=== PATIENT | female | born 1995 | race Caucasian/White ===

== ENCOUNTER 2018-10-09 19:02 | Emergency (ER) | payer BC, MEDICAID ==
[~2018-10-09] VITALS: Ht 157.5 cm; Wt 55.8 kg
[~2018-10-09 19:02] MED LIST: PRENMIS19
[2018-10-09 19:14] VITALS: BP 108/59
== END 2018-10-09 22:10 | disposition home or self-care (01) ==
LOC: ER 19:02
DX: M54.2 Cervicalgia (principal); R07.89 Other chest pain; M54.9 Dorsalgia, unspecified; J45.909 Unspecified asthma, uncomplicated; V49.49XA Driver injured in collision with other motor vehicles in traffic accident, initial encounter; Y93.89 Activity, other specified; Y99.8 Other external cause status; Y92.410 Unspecified street and highway as the place of occurrence of the external cause
CPT/HCPCS: 71045; 72070; 72125

== ENCOUNTER 2024-07-02 08:35 | Observation (INO) | payer MEDICAID ==
--- NOTE | 2024-07-02 13:22 | DVHDS2 ---
Physician Discharge Progress N Final Diagnosis: cramping 36 wks Operations or Procedures: Operations or Procedures nst 36wks,sono Condition on Discharge: Good Disposition: Home Discharge Instructions: Diet: Regular Activity: No Restrictions, As Tolerated Medications: na Follow Up Care: Specialist: yolanda Discharge Statement: "Patient was advised to return to the ER or call 911 if any headaches, dizziness, shortness of breath, chest pain, abdominal pain, bleeding, fevers, or worsening of medical condition. Patient was counseled about treatment plan, medications, possible side effects, patientverbalized understanding. All questions were answered to the best of my ability. This discharge took greater then 30 minutes in planning, reviewing documentation, counseling the patient, and discussing with other team members." Visit Coding OBGYN Date of Service: Jul 02, 2024 Billing Provider: FERNANDEZ MORRISSEY DO STOCK WETTER Common Visit Codes: 78884-WYV/OBS SAME DATE (HIGH) STOCK WETTER Procedure Codes: 28781-46- NON-STRESS TEST FERNANDEZ MORRISSEY DO Jul 02, 2024 13:22
== END 2024-07-02 10:05 | disposition home or self-care (01) ==
LOC: LDRP 08:35 → UNDOADMOB 08:35 → LDRP 08:47
PROVIDERS: ADMIT Obstetrics & Gynecology; ATTEND Obstetrics & Gynecology
DX: O26.893 Other specified pregnancy related conditions, third trimester (principal); R10.9 Unspecified abdominal pain; N89.8 Other specified noninflammatory disorders of vagina; Z3A.36 36 weeks gestation of pregnancy; Z79.899 Other long term (current) drug therapy
CPT/HCPCS: 59025; 81002; 94760; G0378

== ENCOUNTER 2024-07-10 08:36 | Observation (INO) | payer MEDICAID ==
--- NOTE | 2024-07-11 15:20 | DVHDS2 ---
Physician Discharge Progress N Final Diagnosis: labor check 36wks Operations or Procedures: Operations or Procedures nst 36wks,sono Condition on Discharge: Good Disposition: Home Discharge Instructions: Diet: Regular Activity: No Restrictions, As Tolerated Medications: na Follow Up Care: Specialist: 1w Discharge Statement: "Patient was advised to return to the ER or call 911 if any headaches, dizziness, shortness of breath, chest pain, abdominal pain, bleeding, fevers, or worsening of medical condition. Patient was counseled about treatment plan, medications, possible side effects, patientverbalized understanding. All questions were answered to the best of my ability. This discharge took greater then 30 minutes in planning, reviewing documentation , counseling the patient, and discussing with other team members." Visit Coding OBGYN Date of Service: Jul 10, 2024 Billing Provider: FERNANDEZ MORRISSEY DO MUSIC MINISTRIES DIRECTOR Common Visit Codes: 73009-SDMAQYI INP/OBS CARE (HIGH) MUSIC MINISTRIES DIRECTOR Procedure Codes: 32528-16- NON-STRESS TEST FERNANDEZ MORRISSEY DO Jul 11, 2024 15:20
== END 2024-07-10 10:23 | disposition home or self-care (01) ==
LOC: LDRP 08:36
PROVIDERS: ADMIT Obstetrics & Gynecology; ATTEND Obstetrics & Gynecology
DX: O62.9 Abnormality of forces of labor, unspecified (principal); Z3A.36 36 weeks gestation of pregnancy; Z79.899 Other long term (current) drug therapy; Z98.890 Other specified postprocedural states
CPT/HCPCS: 59025; 81002; 94760; G0378

== ENCOUNTER 2024-07-15 08:34 | Observation (INO) | payer MEDICAID ==
[2024-07-15 09:34] LABS: Fern Testing Negative
--- NOTE | 2024-07-15 11:35 | DVHDS2 ---
Physician Discharge Progress N Final Diagnosis: labor check 37wks Operations or Procedures: Operations or Procedures nst 37wks,,sve Condition on Discharge: Good Disposition: Home Discharge Instructions: Diet: Regular Activity: No Restrictions, As Tolerated Medications: na Follow Up Care: Specialist: 1w Discharge Statement: "Patient was advised to return to the ER or call 911 if any headaches, dizziness, shortness of breath, chest pain, abdominal pain, bleeding, fevers, or worsening of medical condition. Patient was counseled about treatment plan, medications, possible side effects, patientverbalized understanding. All questions were answered to the best of my ability. This discharge took greater then 30 minutes in planning, reviewing documentation , counseling the patient, and discussing with other team members." Visit Coding OBGYN Date of Service: Jul 15, 2024 Billing Provider: FERNANDEZ MORRISSEY DO REPAIR ELECTRIC MOTOR ASSEMBLER Common Visit Codes: 79594-[id number] INP/OBS CARE (HIGH) REPAIR ELECTRIC MOTOR ASSEMBLER Procedure Codes: 17408-40- NON-STRESS TEST FERNANDEZ MORRISSEY DO Jul 15, 2024 11:35
== END 2024-07-15 10:02 | disposition home or self-care (01) ==
LOC: UNDOADMOB 08:34 → LDRP 08:34
PROVIDERS: ADMIT Obstetrics & Gynecology; ATTEND Obstetrics & Gynecology
DX: O62.9 Abnormality of forces of labor, unspecified (principal); Z98.890 Other specified postprocedural states; Z79.899 Other long term (current) drug therapy; Z3A.37 37 weeks gestation of pregnancy
CPT/HCPCS: 59025; 81002; 84112; 94760; G0378; Q0114

== ENCOUNTER 2024-07-23 21:40 | Observation (INO) | payer MEDICAID ==
--- NOTE | 2024-07-23 22:55 | DVHDS2 ---
Physician Discharge Progress N Final Diagnosis: Abdominal muscle spasm, resolved Operations or Procedures: Operations or Procedures S: pt is a 28 yo @ 39.4 wks IUP in triage for umbillical pain that moved to her right side of abdomen after eating for an hour but pain was better when she got to labor and delivery. Pt denies complications during this . Pt saw Dr. Brumfield in clinic today 07/23/24 and had a vaginal exam of 0.550/-3 Pt denies UCs,VB, leakage of fluid, and endorses +FM. O: VSS. Vaginal exam by MINDA Leung: /-3 EFM: FHR 150 bpm, moderate variabilty with accels, no decels. [place]: no contractions, irritability noticed A: 28 yo @ 39.4 wks Category I EFM tracing P: D/C home Return Sunday07/26/24 for NST kick counts and Preeclampsia warning signs reviewed. Labor precautions given and when to return to the hospital. Condition on Discharge: Stable Disposition: Home Discharge Instructions: Diet: Regular Activity: No Restrictions, As Tolerated Follow Up/Referral: Pt to come back to triage on Sunday07/26/24 for NST Medications: see med list Follow Up Care: Primary Care Provider: Dr. Brumfield Specialist: Dr. Brumfield Discharge Statement: "Patient was advised to return to the ER or call 911 if any headaches, dizziness, shortness of breath, chest pain, abdominal pain, bleeding, fevers, or worsening of medical condition. Patient was counseled about treatment plan, medications, possible side effects, patientverbalized understanding. All questions were answered to the best of my ability. This discharge took greater then 30 minutes in planning, reviewing documentation, counseling the patient, and discussing with other team members." Visit Coding OBGYN Date of Service: Jul 23, 2024 Billing Provider: HOMER ZAYAS CNM TRANSIT MECHANIC Common Visit Codes: 56041-HOU/OBS DISCH DAY <30MIN JEWELS LERNER STDMadelyn MDWF Jul 23, 2024 22:55
== END 2024-07-23 22:48 | disposition home or self-care (01) ==
LOC: LDRP 21:40
PROVIDERS: ADMIT Obstetrics & Gynecology; ATTEND Obstetrics & Gynecology
DX: O26.893 Other specified pregnancy related conditions, third trimester (principal); R10.33 Periumbilical pain; Z3A.39 39 weeks gestation of pregnancy
CPT/HCPCS: 81002; 94760; G0378

== ENCOUNTER 2024-07-26 18:56 | Observation (INO) | payer MEDICAID ==
--- NOTE | 2024-07-26 19:53 | DVH ---
BIOPHYSICAL PROFILE HISTORY: postdates TECHNIQUE: Multiple transabdominal real-time grayscale sonographic images through the gravid uterus of the fetus with duplex Doppler color flow and M-mode spectral analysis FINDINGS: BIOPHYSICAL PROFILE: breathing score: 2 movement score: 2 tone score: 2 Quantitative RAMBO score: 2 (RAMBO: 9.1 Cm.) Total score: 8/8 The cervix not measured Single live fetus in cephalic presentation. heart rate 145 beats per minute. Posterior Grade 3 placenta without previa or abruption Single live fetus at 40 weeks 0 days Biophysical profile score 8/8 corresponding to an PERCY of 07/26/2024 Estimated weight not calculated g IMPRESSION: 1. Biophysical profile score: 8/8
--- NOTE | 2024-07-26 20:28 | DVHDS2 ---
Physician Discharge Progress N Final Diagnosis: IUP 40 wk, not in labor Secondary Diagnosis: Encounter for NST/BPP Operations or Procedures: Operations or Procedures NST/BPP RAMBO all WNL Condition on Discharge: Stable Disposition: Home Discharge Instructions: Diet: Regular Activity: Light activity Follow Up/Referral: as scheduled ,every 3 days until delivered Medications: N/A Follow Up Care: Discharge Statement: "Patient was advised to return to the ER or call 911 if any headaches, dizziness, shortness of breath, chest pain, abdominal pain, bleeding, fevers, or worsening of medical condition. Patient was counseled about treatment plan, medications, possible side effects, patientverbalized understanding. All questions were answered to the best of my ability. This discharge took greater then 30 minutes in planning, reviewing documentation, counseling the patient, and discussing with other team members." Visit Coding OBGYN Date of Service: Jul 26, 2024 Billing Provider: LIO SO DO DOUGH SHEETER Common Visit Codes: 72317-JQW/OBS SAME DATE (HIGH) DOUGH SHEETER Procedure Codes: 76712-75- NON-STRESS TEST LIO SO DO Jul 26, 2024 20:28
== END 2024-07-26 20:41 | disposition home or self-care (01) ==
LOC: LDRP 18:56
PROVIDERS: ADMIT Obstetrics & Gynecology; ATTEND Obstetrics & Gynecology
DX: O48.0 Post-term pregnancy (principal); Z98.890 Other specified postprocedural states; Z79.899 Other long term (current) drug therapy; Z3A.40 40 weeks gestation of pregnancy
CPT/HCPCS: 76819; 81002; 94760; G0378

== ENCOUNTER 2024-07-28 07:03 | Inpatient (IN) | payer MEDICAID ==
[~2024-07-28] VITALS: Ht 157.5 cm; Wt 80.3 kg
[2024-07-29] MEDS ORDERED: BUTORPHANOL TARTRATE 2 MG/1 ML VIAL IV PRN ×2 (10:45)
[2024-07-29] MEDS ORDERED: LIDOCAINE 2%HCL (LOCAL ANESTH.) INJ 20ML MDV IJ PRN (10:45)
[2024-07-29] MEDS ORDERED: LACTATED RINGER'S 1,000 ML IV SCH (10:45)
[2024-07-29 11:38] LABS: Basophils # (auto) 0 10 ^3/uL (0-0.2); Basophils % (auto) 0.2 % (0.0-2.0); Eosinophils # (auto) 0.2 10 ^3/uL (0-0.8); Eosinophils % (auto) 2.9 % (0.0-7.0); Hematocrit 28.7 % (36.0-46.0); Hemoglobin 9.7 g/dL (12.2-16.2); Lymphocytes % (auto) 15.4 % (10.0-50.0); Mean Corpuscular Hemoglobin 32.7 pg (28.0-32.0); Mean Corpuscular Hgb Conc. 33.8 g/dL (32.0-36.0); Mean Corpuscular Volume 96.8 fL (80.0-100.0); Monocytes # (auto) 0.8 10 ^3/uL (0-1.3); Neutrophils # (auto) 4.5 10 ^3/uL (1.6-8.6); Neutrophils % (auto) 69.5 % (37.0-80.0); Platelet Count (auto) 181 10^3/uL (140-450); Red Blood Cells 2.96 10^6/uL (4.0-5.20); White Blood Cell 6.5 10^3/uL (4.4-10.8)
[2024-07-29 11:53] LABS: INR 1.21 (0.9-1.15); Partial Thromboplastin Time 50.8 SEC (24.5-34.5); Prothrombin Time 12.6 sec (9.3-11.8)
[2024-07-29 11:55] LABS: Alanine Aminotransferase 15 U/L (7-40); Anion Gap 12 (5-15); Aspartate Aminotransferase 16 U/L (13-40); BUN/Creatinine Ratio 11.9 (10.0-20.0); Bilirubin, Total 0.4 mg/dL (0.2-1.0); Chloride 106 mmol/L (98-107); Glucose 98 mg/dL (74-106); Potassium 3.7 mmol/L (3.5-5.1); Sodium 138 mmol/L (136-145)
[2024-07-29 11:57] LABS: Alkaline Phosphatase 148 U/L (46-116); Blood Urea Nitrogen 5 mg/dL (9-23); Calcium 8.2 mg/dL (8.7-10.4); Carbon Dioxide 20 mmol/L (20-31); Total Protein 5.2 g/dL (5.7-8.2)
[2024-07-29 11:57] LABS: Urine Bacteria FEW /hpf (None Seen); Urine Blood Negative /uL (Negative); Urine Clarity Clear (Clear); Urine Color Light-Yellow (Yellow); Urine Mucus FEW (None Seen); Urine Protein, UAD Negative (Negative); Urine Specific Gravity 1.014 (1.001-1.035); Urine Squamous Epithelial Cell FEW /hpf (<5); Urine Urobilinogen Normal (Negative); Urine WBC 2 /HPF (0-5); Urine pH 6.5 (5.0-9.0)
[2024-07-29 12:08] LABS: Barbiturate Scree,Urine Neg (NEGATIVE); Opiate Scree,Urine Neg (NEGATIVE); Phencyclidine Screen, Urine Neg (NEGATIVE)
[2024-07-29 12:09] LABS: Amphetamine Screen, Urine Neg (NEGATIVE); Benzodiazephine Screen, Urine Neg (NEGATIVE); Cannabinoid Screen, Urine Neg (NEGATIVE); Cocaine Screen, Urine Neg (NEGATIVE)
[2024-07-29] MEDS: miSOPROStol 50 MCG per PRE-CUT 1/2 TAB PO PRN (12:18)
--- NOTE | 2024-07-29 14:57 | DVHHP2 ---
OB CC & HPI Date Date of Admission: Jul 29, 2024 Patient Identification: : 3 Para: 2 EDC: Jul 26, 2024 EGA: 40.3 Chief Complaints: Reason for admission: induction of labor History of Present Complaints Elective induction at 40+ weeks GBS neg Normal , good PNL care w/ Dr. Brumfield Past Medical History Cardiac: No pertinent Hx Pulmonary: No pertinent Hx Central Nervous System: No pertinent Hx GI: No pertinent Hx Hemotology/Oncology: No pertinent Hx Hepatobiliary: No pertinent Hx Psychiatric: No pertinent Hx Musculoskeletal: No pertinent Hx Rheumotologic: No pertinent Hx Infectious Disease: No peritnent Hx ENT: No pertinent Hx Renal/: No pertinent Hx Endocrine: No pertinent Hx Dermatology: No pertinent Hx Past Surgical History: No pertinent Hx OB History OB History Care: Good Care Ultrasounds: Normal mid trimester US Obstetrical Complications: None Medical Complications: None Allergies: Coded Allergies: NO KNOWN ALLERGIES (Unverified , 09/12/10) Home Meds Reported Medications Mv & Min W/Fe Fumarat ( Multivitamin + D) + Dha Mis 09/12/10 Current Medications Current Medications Medications (Trade) Dose Ordered Sig/Dmitriy Route PRN Reason Start Time Stop Time Status Last Admin Lactated Ringer's 1,000 ml @ 125 mls/hr Q8H IV 07/29/24 10:45 Witch Mirella (Tucks) 1 pad PRN PRN TOP PERINEAL AREA DISCOMFORT 07/29/24 10:45 Sodium Lauryl Sulfate (Phisoderm) 240 ml PRN PRN TOP PERINEAL AREA DISCOMFORT 07/29/24 10:45 Benzocaine (Dermoplast) 1 applic PRN PRN TOP PERINEAL AREA DISCOMFORT 07/29/24 10:45 Butorphanol Tartrate (Stadol Injection) 1 mg Q4HPRN PRN IV MODERATE PAIN (4-6 PAIN SCALE) 07/29/24 10:45 Butorphanol Tartrate (Stadol Injection) 2 mg Q4HPRN PRN IV SEVERE PAIN (7-10 PAIN SCALE) 07/29/24 10:45 Misoprostol (Cytotec) 50 mcg Q4HPRN PRN PO CERVICAL RIPENING 07/29/24 10:45 07/29/24 12:18 Lidocaine HCl (Xylocaine) 20 ml ONCE PRN IJ PERINEAL AREA DISCOMFORT 07/29/24 10:45 Family & Social History Family/Social History Rubella: immune RPR/VDRL: Negative GBS Status: Negative HBsAG: Negative Review of Systems Constitutional: No symptom reported Ears, Nose, & Throat: No symptom reported Eyes: No symptom reported Pulmonary/Respiratory: No symptom reported Cardiovascular: No symptom reported Gastrointestinal: No symptom reported Genitourinary: No symptom reported Musculoskeletal: No symptom reported Skin: No symptom reported Psychiatric: No symptom reported Endocrine: No symptom reported Hemotologic/Lymphatic: No symptom reported OB Admission Exam Physical Exam HEENT: NCAT Heart: Rhythm Normal Abdomen: Gravid Extremities: Normal Reflexes: Normal Pelvic Exam: 1.5 cm Effacement: Other (60) Station: -2 Membranes: Intact Heart Rate: 150's Accelerations: Accelerations Present Short Term Variability: Present Cement Production Plant Operator Variability: Average (6-25) Contractions on Admission: 6-10 Minutes Apart Intensity: Moderate OB Plan Plan Admitting Diagnosis: Term IUP, Elective induction of labor Cagegory 1 tracing GBS neg Plan: Induction Induction Methd: Misoprostol protocol Visit Coding OBGYN Date of Service: Jul 29, 2024 PAYROLL ADMINISTRATOR Common Visit Codes: [id number] INP/OBS CARE (HIGH) LIO SO DO Jul 29, 2024 14:57
[2024-07-29] MEDS: LACT. RINGERS/OXYTOCIN 20UNITS 1,000 ML IV SCH (19:30)
[2024-07-29] MEDS: DERMOPLAST 60ML BOTTLE TOP PRN (19:32)
[2024-07-29] MEDS: WITCH HAZEL-GLYCERIN PAD TOP PRN (19:32)
[2024-07-29] MEDS: PHISODERM TOP SOLN 240ML BTL TOP PRN (19:32)
[2024-07-29] MEDS: guaiFENesin-DM 100/10mg/5ml SYR PO ONE (19:34)
[2024-07-29] MEDS ORDERED: LIDOCAINE HCL 2 %PF INJ 10ML AMP IJ ONE (22:15)
[2024-07-29] MEDS: ROPIVACAINE 0.5% (5MG/ML) 20ML AMPULE IJ ONE (22:15)
[2024-07-29] MEDS ORDERED: LACTATED RINGER'S 1,000 ML IV ONE (22:15)
[2024-07-29] MEDS ORDERED: ePHEDrine SULFATE 50 MG/ML AMP IV ONE (22:15)
[2024-07-29] MEDS ORDERED: NALOXONE HCL 0.4 MG/ML VIAL IV ONE (22:15)
[2024-07-29] MEDS: fentaNYL CITRATE 100 MCG/2 ML VL IV ONE (23:22)
[2024-07-29] MEDS: ROPIVACAINE HCL 200 ML ONE (23:23)
[2024-07-30] MEDS: guaiFENesin-DM 100/10mg/5ml SYR PO PRN (03:37)
[2024-07-30] MEDS: LACT. RINGERS/OXYTOCIN 20UNITS 500 ML IV ONE ×2 (04:01→04:02)
--- NOTE | 2024-07-30 04:13 | DVHOP ---
OBSTETRIC DELIVERY NOTE DATE OF DELIVERY: 07/30/2024 DIAGNOSES: * Term intrauterine , 40 weeks and 4 days. PROCEDURE PERFORMED: Induction of labor with normal spontaneous vaginal delivery. DESCRIPTION OF FINDINGS: Delivery of a liveborn female infant, cephalic presentation, clear amniotic fluid, scores of 8 and 9, weight is currently pending. Spontaneous delivery of placenta. Three-vessel cord. No perineal lacerations. ANESTHESIA: Labor epidural ESTIMATED BLOOD LOSS: 50 mL. COMPLICATIONS: None. SPECIMENS: Placenta and cord blood. Maged Jiménez DO CG/HEM/SAYDA TID: [id number] RECEIPT: [id number] MTDD
[2024-07-30] MEDS ORDERED: ACETAMINOPHEN 325 MG TAB PO PRN (04:15)
[2024-07-30] MEDS ORDERED: ONDANSETRON ODT 4 MG TAB PO PRN (04:15)
--- NOTE | 2024-07-30 06:47 | DVHPN2 ---
Visit Coding OBGYN Date of Service: Jul 30, 2024 Billing Provider: LIO SO DO SCOW HAND Common Visit Codes: PROCEDURE ONLY SCOW HAND Procedure Codes: [id number]-OBGBZ OB CARE,VAG DELIVERY LIO SO DO Jul 30, 2024 06:47
[2024-07-30 07:04] VITALS: BP 112/57; PULSE 85; RESP 18; TEMP 98.3; O2SAT 94
[2024-07-30 07:30] LABS: Basophils # (auto) 0 10 ^3/uL (0-0.2); Basophils % (auto) 0.1 % (0.0-2.0); Eosinophils # (auto) 0.1 10 ^3/uL (0-0.8); Eosinophils % (auto) 0.9 % (0.0-7.0); Hematocrit 32.2 % (36.0-46.0); Hemoglobin 11.3 g/dL (12.2-16.2); Lymphocytes # (auto) 1.9 10 ^3/uL (0.4-5.4); Lymphocytes % (auto) 14.8 % (10.0-50.0); Mean Corpuscular Hemoglobin 33.2 pg (28.0-32.0); Mean Corpuscular Hgb Conc. 34.9 g/dL (32.0-36.0); Mean Corpuscular Volume 95.2 fL (80.0-100.0); Monocytes # (auto) 1.3 10 ^3/uL (0-1.3); Monocytes % (auto) 9.6 % (0.0-12.0); Neutrophils # (auto) 9.8 10 ^3/uL (1.6-8.6); Neutrophils % (auto) 74.6 % (37.0-80.0); Platelet Count (auto) 201 10^3/uL (140-450); Red Blood Cells 3.39 10^6/uL (4.0-5.20); Red Cell Distribution Width 12.8 % (11.8-14.3); White Blood Cell 13.1 10^3/uL (4.4-10.8)
[2024-07-30 11:00] VITALS: BP 99/54; PULSE 88; RESP 18; TEMP 98.6; O2SAT 96
[2024-07-30 14:43] VITALS: BP 118/56; PULSE 84; RESP 17; TEMP 98.2; O2SAT 96
[2024-07-30] MEDS: IBUPROFEN 600 MG TAB PO PRN (14:56)
[2024-07-30 19:00] VITALS: BP 105/57; PULSE 70; RESP 16; TEMP 98; O2SAT 98
[2024-07-30] MEDS: THROAT LOZENGES(CEPASTAT) MT PRN (20:45)
[2024-07-30] MEDS ORDERED: IBU600T PO (23:42)
[2024-07-30] MEDS ORDERED: DOCU-94 PO (23:42)
[2024-07-31] VITALS: BP 119/58; PULSE 74; RESP 16; TEMP 97.9; O2SAT 98
--- NOTE | 2024-07-31 00:08 | DVHPN2 ---
Progress Note Date Seen: Jul 31, 2024 Subjective S: bleeding is less, eating food without issues, denies lightheaded/dizziness, pain well controlled with oral medications, no concerns with urinating, passing flatus, no BM yet, ambulating well, well and supplementing with bottles as needed vital signs Vital Sign Date Time Temp Pulse Resp B/P (MAP) Pulse Ox O2 Delivery O2 Flow Rate FiO2 07/30/24 19:00 98.0 70 16 105/57 (73) 98 98.0 07/30/24 19:00 Room Air Total Intake and Output 07/30/24 07/30/24 07/31/24 15:00 23:00 07:00 Output Total 600 ml Balance -600 ml medications Current Medications Medications Dose Ordered Sig/Dmitriy Route Start Time Stop Time Status Last Admin Dose Admin Lactated Ringer's 1,000 ml @ 125 mls/hr Q8H IV 07/29/24 10:45 Cancel Witch Mirella 1 pad PRN PRN TOP 07/29/24 10:45 07/29/24 19:32 1 PAD Sodium Lauryl Sulfate 240 ml PRN PRN TOP 07/29/24 10:45 07/29/24 19:32 240 ML Benzocaine 1 applic PRN PRN TOP 07/29/24 10:45 07/29/24 19:32 1 APPLIC Butorphanol Tartrate 1 mg Q4HPRN PRN IV 07/29/24 10:45 Cancel Butorphanol Tartrate 2 mg Q4HPRN PRN IV 07/29/24 10:45 Cancel Lidocaine HCl 20 ml ONCE PRN IJ 07/29/24 10:45 Cancel Oxytocin 1,000 ml @ 6 ml/hr Q24H IV 07/29/24 19:30 Guaifenesin/ Dextromethorphan 10 ml Q4HP PRN PO 07/30/24 03:30 07/30/24 03:37 10 ML Ibuprofen 600 mg Q6HP PRN PO 07/30/24 04:15 07/30/24 14:56 600 MG Acetaminophen 650 mg Q4HP PRN PO 07/30/24 04:15 Ondansetron HCl 4 mg Q4HPRN PRN PO 07/30/24 04:15 Throat Lozenges 1 darrian Q2HP PRN MT 07/30/24 19:45 07/30/24 20:45 1 [facility] laboratory and microbiology Laboratory Tests 07/30/24 07:00 07/29/24 11:12 Test 07/29/24 11:12 Range/Units Serum Glucose 98 74-106 mg/dL Objective O: VSS Chest: heart sounds normal and lung sounds clear bilaterally Abd: soft, non-tender, fundus at U/firm/midline, active bowel sounds, no rebound or guarding Perineum: intact, no erythema/edema noted Ext: Non-tender, No edema, 2+ BLE DTRs Lochia: minimal See lab results Problems(with codes): (1) (normal spontaneous vaginal delivery) (2) Intact perineum Assessment/Plan A: 29yo now PPD#2 s/p Rh+ Rubella Non-Immune Pain control with PO medications Bowel regimen P: D/C home today Rx sent to pharmacy MMR vaccine ordered precautions and preeclampsia warning signs reviewed F/U with [facility] office in 2 weeks Plan discussed with: Patient, Spouse Visit Coding OBGYN Date of Service: Jul 31, 2024 Billing Provider: HOMER ZAYAS CNM DRUGLESS PHYSICIAN Common Visit Codes: [id number] INP/OBS CARE(MOD) JEWELS LERNER STDMadelyn LUNAWF Jul 31, 2024 00:08
[2024-07-31 04:00] VITALS: BP 105/64; PULSE 70; RESP 16; TEMP 97.9; O2SAT 97
[2024-07-31 06:58] VITALS: BP 103/59; PULSE 60; RESP 15; TEMP 98; O2SAT 96
[2024-07-31] MEDS ORDERED: MEASLES, MUMPS & RUBELLA VAC(MMRII) 0.5ML SC ONE (07:00)
[2024-07-31 11:10] VITALS: BP 108/60; PULSE 60; RESP 15; TEMP 98.4; O2SAT 98
--- NOTE | 2024-07-31 11:25 | EPIDURAL ---
Anesthesia Procedural Note - Epidural Informed consent obtained?: Yes Medication Administered: Fentanyl 100 mcg Sterile prept drape: Yes Spinal level of insertion: L4-L5 Test dose of lidocaine & Epine: Negative Infusion started: Yes Start time: 22:50 End time: 23:20 Procedure description Procedure description: Called for labor analgesia. Patient id at 40+4 weeks gestation for induction of labor. Chart reviewed, patient examined, history taken. Informed consent for CSE obtained at 2250 (BP 126/66 HR 107 spO2 99). Sitting position, sterile prep and drape. L4-5 space infiltrated with 1% lido. Epidural needle placed with REGINA at 5cm. 25G spinal needle +clear CSF. 15mcg fentanyl given IT at 2255 (BP 126/70 HR 95 spO2 99). Epidural catheter secured at 11cm. Aspiration and test dose (3cc 1.5% lido with epi) negative at 2258 (BP 120/60 HR 90 spO2 99). 85mcg fentanyl given via epidural at 2301 (BP 118/70 HR 90 spO2 99). Patient reports good pain relief. 0.2% ropivacaine infusion started at 2318 (BP 113/55 HR 94 spO2 99). Baby delivered at 07/30/2024 at 0056. SOPHIA BRUNNER MD Jul 31, 2024 11:25
[2024-07-31 15:00] VITALS: BP 112/62; PULSE 80; RESP 16; TEMP 98.3; O2SAT 96
--- NOTE | 2024-07-31 17:20 | DVHDS2 ---
Obstetrics Discharge Summary Obstetrics Discharge Summary Date of Admission: Jul 29, 2024 Date of Discharge: Jul 31, 2024 Reason For Admission: Induction of Labor Procedures: NST Intrapartum Procedures: Spontaneous vaginal deliv Procedures: Hct/date: (), Hgb/date: (07/30/2024) Operative Complicat: None Discharge Diagnosis: Term -Delivered Discharge Information: Activity (as tolerated, no heavy lifting and nothing in the vagina for 6 weeks), Diet (Routine), Medications (rx sent), Instructions (R outine), Discharge to (Home), Accompanied by (partner), Discarge date (07/31/2024) Visit Coding OBGYN Date of Service: Jul 31, 2024 Billing Provider: HOMER ZAYAS CNM SPOOL CLEANER Common Visit Codes: 79003-YDH/OBS DISCH DAY <30MIN JEWELS LERNER MDWF Jul 31, 2024 17:20
== END 2024-07-31 18:00 | disposition home or self-care (01) | DRG 560 ==
LOC: LDRP 07-29 09:55 → OBSVTOIN 07-29 09:55
PROVIDERS: ADMIT Obstetrics & Gynecology; ATTEND Obstetrics & Gynecology
PROC: 10E0XZZ Delivery of Products of Conception, External Approach (ICD-10-PCS; principal; 2024-07-30)
PROC: 3E033VJ Introduction of Other Hormone into Peripheral Vein, Percutaneous Approach (ICD-10-PCS; 2024-07-30)
PROC: 3E0S3BZ Introduction of Anesthetic Agent into Epidural Space, Percutaneous Approach (ICD-10-PCS; 2024-07-30)
PROC: 00HU33Z Insertion of Infusion Device into Spinal Canal, Percutaneous Approach (ICD-10-PCS; 2024-07-30)
DX: O48.0 Post-term pregnancy (principal); Z37.0 Single live birth; Z3A.40 40 weeks gestation of pregnancy
CPT/HCPCS: 36415; 59409; 62282; 80053; 80307; 81001; 81002; 85025; 85610; 85730; 86780; 86803; 86850; 86900; 86901; 94760; 94762; 96360; 96361; 96365; 96366; G0378; J2590